=== PATIENT | female | born 1955 | race Caucasian/White ===

== ENCOUNTER → 2016-05-12 | Outpatient (CLI) | payer BC ==
[~2016-05-12] MED LIST: ALPRAZOLAM0.5 MG PO; ASPIR-LOW81 MG PO; CATAPRES 0.1MG0.1 MG PO; Exforge PO; FISH OIL1 IU PO; GLUCOSAMINE/CHONDROI PO; HYZAAR 12.5 MG-1 TAB PO; LEVOTHYROXINE0.1 MG PO; LEXAPRO 10MG10 MG PO; Multivitamins; PRILOSEC 20MG20 MG PO; VITAMIN B12; VITAMIN C500 MG PO
== END ==
LOC: MC.RAD 08:40
DX: Z12.31 Encounter for screening mammogram for malignant neoplasm of breast (principal)

== ENCOUNTER → 2016-06-18 | Outpatient (CLI) | payer BC | LOC: MHCPAIN 09:07 | DX: G89.29 Other chronic pain (principal); M47.817 Spondylosis without myelopathy or radiculopathy, lumbosacral region | CPT/HCPCS: G0463 ==

== ENCOUNTER → 2017-05-15 | Outpatient (CLI) | payer BC | LOC: MC.RAD 08:52 | DX: Z12.31 Encounter for screening mammogram for malignant neoplasm of breast (principal); R92.0 Mammographic microcalcification found on diagnostic imaging of breast ==

== ENCOUNTER → 2017-05-20 | Outpatient (CLI) | payer BC | LOC: MC.RAD 07:00 | DX: R92.0 Mammographic microcalcification found on diagnostic imaging of breast (principal) ==

== ENCOUNTER → 2017-05-27 | Outpatient (CLI) | payer BC | LOC: MC.RAD 08:21 | DX: R92.0 Mammographic microcalcification found on diagnostic imaging of breast (principal) ==

== ENCOUNTER → 2018-05-17 | Outpatient (CLI) | payer BC | LOC: MC.RAD 13:33 | DX: Z12.31 Encounter for screening mammogram for malignant neoplasm of breast (principal) ==

== ENCOUNTER → 2019-05-20 | Outpatient (CLI) | payer BC | LOC: MC.RAD 12:54 | DX: Z12.31 Encounter for screening mammogram for malignant neoplasm of breast (principal); Z98.82 Breast implant status ==

== ENCOUNTER → 2020-05-25 | Outpatient (CLI) | payer BC | END | disposition still patient (30) | LOC: MC.RAD 13:00 | DX: Z12.31 Encounter for screening mammogram for malignant neoplasm of breast (principal) ==

== ENCOUNTER → 2021-05-27 | Outpatient (CLI) | payer BC | LOC: MC.RAD 12:50 | DX: Z12.31 Encounter for screening mammogram for malignant neoplasm of breast (principal) ==

== ENCOUNTER → 2022-06-17 | Outpatient (CLI) | payer BC | LOC: MC.RAD 16:17 | DX: Z12.31 Encounter for screening mammogram for malignant neoplasm of breast (principal) ==

== ENCOUNTER → 2022-06-23 | Outpatient (CLI) | payer BC | LOC: COL.VAS 08:35 | DX: M79.662 Pain in left lower leg (principal) ==

== ENCOUNTER → 2023-07-09 | Outpatient (CLI) | payer BC | LOC: MC.RAD 16:44 | DX: Z12.31 Encounter for screening mammogram for malignant neoplasm of breast (principal) ==

== ENCOUNTER 2023-11-25 06:44 | Day surgery (SDC) | payer BC, MEDICARE ==
[2023-11-25] VITALS (20 sets, daily range): BP systolic 153–187; BP diastolic 73–93; PULSE 48–96; TEMP 51–98.8
[~2023-11-25] VITALS: Ht 160 cm; Wt 90.9 kg
[~2023-11-25 06:44] MED LIST changes: -ASPIR-LOW81 MG PO; +ASPIRIN 81M81 MG/TA2 PO; +B-121000 MCG PO; -LEVOTHYROXINE0.1 MG PO; +SYNTHROID0.125 MG/T PO; -VITAMIN B12
[2023-11-25] MEDS ORDERED: 1/2 NS 1,000 ML IV SCH ×2 (07:30→10:45)
[2023-11-25 08:01] LABS: HEMOGLOBIN 13.4 g/dl (12.5-16.0); MEAN CELL VOLUME 88 fl (80.0-100.0); MEAN CORPUSCULAR HEMOGLOBIN 30 pg (27-31); MEAN CORPUSCULAR HGB CONC 34 g/dl (33.0-37.0); MEAN PLATELET VOLUME 9.1 fl (7.4-10.4); PLATELET COUNT 245 K/mm3 (130-400); RED BLOOD COUNT 4.45 M/mm3 (4.10-5.30); REDCELL DISTRIBUTION WIDTH-CV 13.2 % (11.5-14.5)
[2023-11-25 08:17] LABS: CALCIUM 10.1 mg/dL (8.4-10.2); CREATININE, serum 0.68 mg/dL (0.57-1.11); POTASSIUM 3.9 mEq/L (3.5-4.5)
[2023-11-25] MEDS ORDERED: NORVASC 5MG5 MG/TAB PO (08:30)
[2023-11-25] MEDS ORDERED: LIPITOR 10MG10 MG PO (08:31)
[2023-11-25] MEDS ORDERED: GOLO RELEASE PO (08:34)
[2023-11-25] MEDS ORDERED: MELATONIN ER10 MG PO (08:37)
[2023-11-25] MEDS ORDERED: TOPROL XL 25MG25 MG PO (08:40)
[2023-11-25] MEDS ORDERED: [UNRECOGNIZED DRUG - OTHER] PO (08:41)
[2023-11-25] MEDS ORDERED: BENICAR40 MG PO (08:42)
[2023-11-25] MEDS ORDERED: VITAMIN D31000 I1 PO (08:44)
[2023-11-25] MEDS ORDERED: MULTI VITAMINS1 TAB PO (08:45)
--- NOTE | 2023-11-25 09:11 | NUR ---
SEE MERGE FOR PROCEDURE DOCUMENTATION
[2023-11-25] MEDS ORDERED: Heparin 1,000 UNITS/ML 10 ML Multi-Dose VIAL IV SCH (09:27)
[2023-11-25] MEDS ORDERED: Heparin 1,000 UNITS/ML 10 ML Multi-Dose VIAL IA SCH (09:28)
[2023-11-25] MEDS ORDERED: Verapamil 2.5 MG/ML 2 ML VIAL IA SCH (09:40)
[2023-11-25] MEDS ORDERED: Nitroglycerin 100 MCG/ML (Cath Lab) 10 ML VIAL IA SCH (09:45)
[2023-11-25] MEDS ORDERED: fentaNYL 50 MCG/ML 2 ML VIAL IV SCH (09:49)
[2023-11-25] MEDS ORDERED: Midazolam 2 MG/2 ML VIAL IV SCH (09:50)
[2023-11-25] MEDS ORDERED: Iohexol 350 - 100 ML VIAL INCOR ONE (09:51)
[2023-11-25] MEDS ORDERED: Ticagrelor 90 MG TAB PO SCH ×2 (09:51→21:00)
[2023-11-25] MEDS ORDERED: Bisacodyl 5 MG TAB PO PRN (10:15)
--- NOTE | 2023-11-25 10:30 | NUR ---
PT ALERT AND ORIENTED, VSS WITH HTN NOTED PER BASELINE. PATIENT DENIES PAIN OR NAUSEA. TRANSFERRED INDEPENDENTLY TO BED VIA SLIDE AND TRANSPORTED VIA BED AND ZOLL TO [facility]. VITAL SIGNS TAKEN ON ARRIVAL, HYPERTENSION PERSISTS. TRANSFER OF CARE REPORT TO LETHA CHESTER. PLAN OF CARE REVIEWED AND QUESTIONS ANSWERED. BED TO LOWEST POSITION, X3 BEDRAILS IN PLACE, CALL LIGHT WITHIN REACH. RIGHT RADIAL SITE REMAINS CDI AND ELEVATED ON PILLOW.
[2023-11-25] MEDS ORDERED: Magnes Hydrox (MOM) 80 MG/ML 30 ML CUP PO PRN (10:45)
[2023-11-25] MEDS ORDERED: Bivalirudin 250 MG in NS 50 ML IV ONE (10:45)
[2023-11-25] MEDS ORDERED: Ondansetron 4 MG/2 ML VIAL IV PRN (10:45)
--- NOTE | 2023-11-25 10:47 | NUR ---
Report receied pt to transfer to another room overnight.
[2023-11-25] MEDS ORDERED: amLODIPine 5 MG TAB PO ONE (15:15)
[2023-11-25] MEDS ORDERED: Acetaminophen 325 MG TAB PO PRN (16:15)
--- NOTE | 2023-11-25 19:55 | NUR ---
CALL PLACED TO [facility] REQUESTING BP PARAMETERS PATIENT CONTINUES TO BE HYPERTENSIVE. TORB TO NOTIFY IF SYSTOLIC BECOMES GREATER THAN 200 TO CALL. CURRENT BP 170'S SYSTOLIC AND SCHEDULE METPROLOL DUE SOON.
--- NOTE | 2023-11-25 20:23 | NUR ---
UPON SHIFT ASSESSMENT, PATIENT WAS IN BEDSIDE RECLINER, AND AXO X4. RT RADIAL SITE FOLLOWING CARDIAC CATH IS CDI WITH BANDAID. DISTAL PULSES GOOD AND NO SIGNS OF HEMATOMA. PATIENT DENIES CHEST PAIN OR SOA. PATIENT REQUESTED A VISIT FROM SIGNAL CONSTRUCTOR TOMMORROW SHE HAS SOME QUESTIONS SHE WOULD LIKE TO ASK THE MD. TELE CURRENTLY EXHIBIT SINUS IJEOMA AT 48 BPM. PATIENT STATES NO NEEDS AT THIS TIME.
[2023-11-25] MEDS ORDERED: Losartan 50 MG TAB PO SCH (21:00)
[2023-11-25] MEDS ORDERED: Melatonin 3 MG TAB PO PRN (21:00)
[2023-11-25] MEDS ORDERED: Melatonin 3 MG TAB PO SCH (21:00)
[2023-11-26] VITALS (7 sets, daily range): BP systolic 116–175; BP diastolic 84–101; PULSE 55–63; TEMP 97.5–98.6
--- NOTE | 2023-11-26 03:46 | NUR ---
PATIENT RESTING PEACEFULLY WITH C-PAP IN PLACE. VS ARE WNL. NO SIGNS OF DISTRESS.
[2023-11-26 06:29] LABS: BASO % 0.1 % (0.0-2.0); EOS % 0.5 % (0.0-4.0); GRAN # 6.4 K/mm3 (1.4-6.5); GRAN % 77.1 % (42.2-75.2); HEMATOCRIT 42.9 % (37.0-47.0); HEMOGLOBIN 14.8 g/dl (12.5-16.0); LYMPH # 1.3 K/mm3 (1.2-3.4); LYMPH % 15.2 % (20.0-51.0); MEAN CELL VOLUME 87 fl (80.0-100.0); MEAN CORPUSCULAR HEMOGLOBIN 30 pg (27-31); MEAN CORPUSCULAR HGB CONC 35 g/dl (33.0-37.0); MONO # 0.6 K/mm3 (0.1-0.6); MONO % 6.7 % (1.7-9.3); PLATELET COUNT 265 K/mm3 (130-400); RED BLOOD COUNT 4.94 M/mm3 (4.10-5.30); REDCELL DISTRIBUTION WIDTH-CV 13.2 % (11.5-14.5)
[2023-11-26 07:12] LABS: CALCIUM 10.1 mg/dL (8.4-10.2); CREATININE, serum 0.73 mg/dL (0.57-1.11); POTASSIUM 4.2 mEq/L (3.5-4.5)
--- NOTE | 2023-11-26 07:32 | NUR ---
TOWARDS END OF SHIFT, PATIENT BECAME VERY ANXIOUS AND INSISTED ON A BEDSIDE CONSULT WITH MELY SPECIFICALLY AND "...IF HE DOES NOT SHOW UP I WILL BE VERY UPSET. I ONLY SAW HIM FOR A FEW MINUTES RIGHT BEFORE MY PROCEDURE." USING THERAPEUTIC COMMUNICATION, THIS PHOTOGRAPHY AND PRINTS CURATOR ASSURED HER A MECHANICAL TEST ENGINEER WOULD BE IN TO CONSULT WITH HER. 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 PATIENT WANTED TO KNOW WHAT TO ANTICIPATE IN THE EVENT "...IF IT IS AN ELECTRICAL PROBLEM." EDUCATION WAS PROVIDED THAT MECHANICAL TEST ENGINEER WOULD CONSULT WITH HER ON COURSE OF ACTION, PATIENT BECAME UPSET AND STATED, "I FEEL LIKE YOU'RE NOT UNDERSTANDING ME." EDUCATED PROVIDED TO PATIENT ON COMMON TREATMENTS FOR ARRYTHMIAS SUCH ANTIARRYTHMIC MEDICATIONS, CARDIOVERSIONS, LOOP RECORDERS AND PACEMAKERS GIVEN. TOLD PATIENT THAT IT WAS OUTSIDE OF THIS NURSE'S SCOPE TO SAY WHICH IF ANY INTERVENTION WAS TO TAKE PLACE AND THAT MECHANICAL TEST ENGINEER WOULD GO OVER IT WITH HER. PATIENT REMAINED UPSET, THIS PHOTOGRAPHY AND PRINTS CURATOR REVEALED TO PATIENT HER OWN ISSUES WITH ARRTHMIAS AND HOW HER MECHANICAL TEST ENGINEER ADDRESSED IT AND HOW ARRTHYMIAS BECOME MORE COMMON WE AGE. THIS LINE OF THERAPEUTIC COMMUNICATION SEEMED EFFECTIVE AND PATIENT NO LONGER ANXIOUS. PASSED TO DAYSHIFT PATIENT'S AFFECT AND PATIENT'S EXPRESS DESIRE TO SPEAK WITH MELY SPECIFICALLY.
[2023-11-26] MEDS ORDERED: Cyanocobalamin (Vit B-12) 1,000 MCG TAB PO SCH (09:00)
[2023-11-26] MEDS ORDERED: Ascorbic Acid 500 MG TAB PO SCH (09:00)
[2023-11-26] MEDS ORDERED: Atorvastatin 80 MG TAB PO SCH (09:00)
[2023-11-26] MEDS ORDERED: Escitalopram 10 MG TAB PO SCH (09:00)
[2023-11-26] MEDS ORDERED: Multivitamin TAB PO SCH (09:00)
[2023-11-26] MEDS ORDERED: Olmesartan 40 MG **** subs to Losartan 100 MG PO SCH (09:00)
[2023-11-26] MEDS ORDERED: Cholecalciferol (Vit D3) 1000 Units TAB PO SCH (09:00)
[2023-11-26] MEDS ORDERED: amLODIPine 5 MG TAB PO SCH ×2 (09:00)
--- NOTE | 2023-11-26 09:11 | NUR ---
PATIENT SITTING UP IN BED EATING BREAKFAST. ALERT AND ORIENTED. DENIES PAIN OR DISCOMFORT. PATIENT LOOKING FORWARD TO GOING HOME TODAY. WAITING TO SEE DR BOONE. TELEMETRY ON. ALL NEEDS MET AT THIS TIME. CALL LIGHT WITHIN REACH.
--- NOTE | 2023-11-26 10:25 | NUR ---
wafer polishing lead worker met with pt to discuss discharge planning. She reports to live alone in [place]. She sees Dr. Cortez for PCP needs and [facility]. She does have concerns affording her new cardiology medication and SW advised her to discuss this with the Plate Filler. She reports to be independent with ADLS and uses a CPAP for DME. She does not have a DPOA-HC. Pt reports the contact listed, Lucy is her best friend and Rich is her ex-. Pt states her only adult child is Andi Murillo [phone]. SW verified this number is correct and she states her son is in [place] and she usually contacts him using [email or web address]. SW advised Andi would be her NOK and offered to provide a DPOA-HC. Pt declined this and was informed the team would attempt to reach her son, if neccessay. She reports her and friend could be used to assist as well. Pt reports she has BCBS and Medicare Part A insurance as she is still working. SW advised she will inform admissions dept of this. She has no further needs or concerns for mobility. SW informed R1 of medicare A insurance. Discharge Plan: home
--- NOTE | 2023-11-26 11:48 | NUR ---
ch. introduced self. pt mentioned that she was good and thanked the family assistant for stoping bye.
[2023-11-26] MEDS ORDERED: LIPITOR 80MG80 MG PO (12:05)
[2023-11-26] MEDS ORDERED: NORVASC 5MG5 MG/TAB PO (12:06)
[2023-11-26] MEDS ORDERED: BRILINTA90 MG PO (12:06)
--- NOTE | 2023-11-26 12:38 | NUR ---
PATIENT IS HYPERTENSIVE AT 1200 VS. THIS RN CHECKED ON PATIENT. PATIENT IS ANXIOUS ABOUT JUST SEEING CARDIOLOGY AND DISCHARGING. PATIENT JUST GOT DONE CHANGING CLOTHES. THIS RN CALLED CLASSIFIED ADVERTISING SUPERVISOR AND NOTIFIED HER OF BP. NO NEW ORDERS AT THIS TIME.
--- NOTE | 2023-11-26 13:21 | NUR ---
1:1 staff discussion: Reviewed risk factors for heart disease. Covered applicable modifiable risk factors including the following: tobacco cessation, HTN, hyperlipidemia, diabetes, overweight/obesity, sedentary lifestyle, and stress/depression. Patient verbalized understanding. Referral to [facility] with patient's permission. Patient works in [place] and lives [facility]. Staff discussed flexability of program and encouraged pt to attend at least 1x/week. Patient agreeable to think about it. Staff will f/u 12/02 or to discuss or schedule iniital intake.
--- NOTE | 2023-11-26 13:40 | NUR ---
THIS RN PROVIDED PATIENT WITH DISCHARGE EDUCATION AND INSTRUCTIONS. ALL QUESTIONS ANSWERED. THIS RN DISCONTINUED IV TO LEFT HAND. MINIMAL DRAINAGE NOTED.
--- NOTE | 2023-11-26 13:44 | NUR ---
PATIENT ESCORTED OFF UNIT BY RN. ALL BELONGINGS WITH PATIENT.
== END 2023-11-26 13:45 | disposition home or self-care (01) ==
LOC: MEDICAL 06:44 → COL.CAR 06:44 → MEDICAL 10:31 → COL.CAR 11-26 07:00
PROVIDERS: Internal Medicine Cardiovascular Disease
DX: I25.10 Atherosclerotic heart disease of native coronary artery without angina pectoris (principal); I10 Essential (primary) hypertension; R42 Dizziness and giddiness; R94.39 Abnormal result of other cardiovascular function study; E78.5 Hyperlipidemia, unspecified; I51.7 Cardiomegaly; E66.9 Obesity, unspecified; Z68.34 Body mass index [BMI] 34.0-34.9, adult; Z79.899 Other long term (current) drug therapy
CPT/HCPCS: OP; C1725; C1769; C1874; C1887; C9600; J0583; J1644; J2250; J3010; Q9967

== ENCOUNTER 2024-02-12 14:37 | Outpatient (RCR) | payer BC ==
[~2024-02-12 14:37] MED LIST changes: +BENICAR40 MG PO; +BRILINTA90 MG PO; +GOLO RELEASE PO; +LIPITOR 10MG10 MG PO; +LIPITOR 80MG80 MG PO; +MELATONIN ER10 MG PO; +MULTI VITAMINS1 TAB PO; +NORVASC 5MG5 MG/TAB PO; +TOPROL XL 25MG25 MG PO; +VITAMIN D31000 I1 PO; +[UNRECOGNIZED DRUG - OTHER] PO
== END 2024-02-18 | disposition home or self-care (01) ==
LOC: COL.CR
DX: Z02.89 Encounter for other administrative examinations (principal)